=== PATIENT | female | born 1950 | race Caucasian/White ===

== ENCOUNTER → 2024-01-08 07:35 | Outpatient (REF) | payer MEDICARE, SELFPAY | LOC: MRI 07:35 | PROVIDERS: ATTENDING PHYSICIAN Physical Medicine & Rehabilitation Pain Medicine; FAMILY PHYSICIAN Physician Assistant | DX: M48.062 Spinal stenosis, lumbar region with neurogenic claudication (principal) | CPT/HCPCS: 72148 ==

== ENCOUNTER → 2024-10-03 07:51 | Outpatient (REF) | payer MEDICARE, SELFPAY | LOC: WDC 07:51 | PROVIDERS: ATTENDING PHYSICIAN Physician Assistant | DX: Z12.31 Encounter for screening mammogram for malignant neoplasm of breast (principal) | CPT/HCPCS: 77063; 77067 ==

== ENCOUNTER → 2024-12-12 07:36 | Outpatient (REF) | payer MEDICARE, SELFPAY | LOC: EMG 07:36 | PROVIDERS: ATTENDING PHYSICIAN Physician Assistant | DX: G62.9 Polyneuropathy, unspecified (principal); R20.0 Anesthesia of skin | CPT/HCPCS: 95886; 95911 ==

== ENCOUNTER 2025-02-27 09:08 | Day surgery (SDC) | payer MEDICARE, SELFPAY | END 2025-02-27 09:42 | disposition home or self-care (01) | LOC: GI 09:08 | PROVIDERS: ATTENDING PHYSICIAN Specialist; FAMILY PHYSICIAN Physician Assistant | DX: Z12.11 Encounter for screening for malignant neoplasm of colon (principal); K57.30 Diverticulosis of large intestine without perforation or abscess without bleeding; K64.8 Other hemorrhoids; R19.4 Change in bowel habit; Z86.0101 Personal history of adenomatous and serrated colon polyps | CPT/HCPCS: 45380; 88305 ==

== ENCOUNTER → 2025-04-10 17:03 | Outpatient (REF) | payer MEDICARE, SELFPAY | LOC: PAVMRI 17:03 | PROVIDERS: ATTENDING PHYSICIAN Orthopaedic Surgery Orthopaedic Surgery of the Spine; PRIMARYCARE PHYSICIAN Physician Assistant | DX: M47.12 Other spondylosis with myelopathy, cervical region (principal) | CPT/HCPCS: 72141 ==

== ENCOUNTER → 2025-05-29 09:55 | Outpatient (REF) | payer MEDICARE, SELFPAY | LOC: RAD 09:55 | PROVIDERS: ATTENDING PHYSICIAN Physician Assistant | DX: E04.1 Nontoxic single thyroid nodule (principal) | CPT/HCPCS: 76536 ==